=== PATIENT | female | born 1965 | race American Indian/Alaskan Native ===

== ENCOUNTER 2019-04-30 21:02 | Emergency (ER) | payer OTHER ==
--- NOTE | 2019-04-30 21:39 | Emergency Department Report ---
Blank Doc - Documentation Documentation: s/p trip to [place] where she developed nausea and vomiting c/o [place], Ear pain, and right eye pressure. Has right eye blurred vision and pain radiates down neck. This initial assessment/diagnostic orders/clinical plan/treatment(s) is/are subject to change based on patient's health status, clinical progression and re- assessment by fellow clinical providers in the ED. Further treatment and workup at subsequent clinical providers discretion. Patient/guardians urged not to el ope from the ED as their condition may be serious if not clinically assessed and managed. Initial orders include: Ears clear on exam
--- NOTE | 2019-04-30 22:37 | Cat Scan Report ---
CT OF THE HEAD WITHOUT CONTRAST INDICATION / CLINICAL INFORMATION: Headache. TECHNIQUE: All CT scans at this location are performed using CT dose reduction for ALARA by means of automated e xposure control. COMPARISON: None available. FINDINGS: The ventricular system is normal in size and configuration. No focal lesion or mass effect is seen. T here is no evidence of intracranial hemorrhage or major vessel occlusion. The calvarium is intact. Th e visualized paranasal sinuses and mastoid air cells are clear. IMPRESSION: Negative study. Signer Name: Hamran Monae MD Signed: 04/30/2019 10:33 PM Workstation Name: [id number]
[2019-04-30] MEDS ORDERED: NACL 0.9% 1000 ML 1,000 ML IV ONE (23:30)
[2019-04-30] MEDS ORDERED: ZOFRAN IV ONE (23:30)
[2019-04-30] MEDS ORDERED: TORADOL IV ONE (23:31)
--- NOTE | 2019-04-30 23:35 | Emergency Department Report ---
ED General Adult HPI - General Chief complaint: Headache Stated complaint: SEVERE HEADACHE, VOMITING Time Seen by Provider: 04/30/19 21:35 Source: patient Mode of arrival: Ambulatory Limitations: No Limitations - History of Present Illness Initial comments: This is a 54-year-old -[place] female who presents to the emergency room with nausea and vomiting, myalgia, and a headache for 3 days. Patient states she traveled via plane to [place] on Friday for work conference intensity ever since. Patient states the person sitting next to her on the plane was wearing a mask and cough the entire flight. She reports feeling sick Friday when she woke up vomiting and body aches. Patient reports symptoms worsen when she arrived home today. States she is unable to hold anything down and continue to ache. Onset/Timin -: days(s) Location: head, back Radiation: non-radiation Severity scale (0 -10): 5 Quality: aching Consistency: constant Improves with: none Worsens with: none Associated Symptoms: cough, fever/chills, headaches, nausea/vomiting. denies: confusion, chest pain, diaphoresis, malaise, rash, seizure, weakness Treatments Prior to Arrival: NSAID - Related Data Previous Rx's Medication Instructions Recorded Last Taken Type Butalb/Acetaminophen/Caffeine 1 cap PO Q6HR PRN #10 cap 05/01/19 Unknown Rx [Fioricet 50-300-40 mg CAP] Ondansetron [Zofran Odt] 4 mg PO Q8HR PRN #15 tab.rapdis 05/01/19 Unknown Rx Allergies Allergy/AdvReac Type Severity Reaction Status Date / Time No Known Allergies Allergy Unverified 04/30/19 21:44 ED Review of Systems ROS: Stated complaint: SEVERE HEADACHE, VOMITING Other details as noted in HPI Constitutional: chills. denies: fever ENT: congestion. denies: ear pain, throat pain Respiratory: cough. denies: shortness of breath, wheezing Cardiovascular: denies: chest pain, palpitations Gastrointestinal: nausea, vomiting. denies: abdominal pain, diarrhea Musculoskeletal: myalgia. denies: back pain, joint swelling, arthralgia Skin: denies: rash, lesions Neurological: headache. denies: weakness, paresthesias Psychiatric: denies: anxiety, depression ED Past Medical Hx - Past Medical History Previous Medical History?: No - Surgical History Past Surgical History?: Yes Additional Surgical History: Partial hysterectomy - Social History Smoking Status: Never Smoker Substance Use Type: None - Medications Home Medications: Home Medications Medication Instructions Recorded Confirmed Last Taken Type Butalb/Acetaminophen/Caffeine 1 cap PO Q6HR PRN #10 cap 05/01/19 Unknown Rx [Fioricet 50-300-40 mg CAP] Ondansetron [Zofran Odt] 4 mg PO Q8HR PRN #15 tab.rapdis 05/01/19 Unknown Rx ED Physical Exam - General Limitations: No Limitations General appearance: alert, in no apparent distress - ENT ENT exam: Present: mucous membranes moist, TM's normal bilaterally, normal external ear exam, other (turbinates congested with clear discharge.). Absent: normal orophraynx (erythematous posterior pharynx, uvula midline.) - Neck Neck exam: Present: normal inspection - Respiratory Respiratory exam: Present: normal lung sounds bilaterally. Absent: respiratory distress - Cardiovascular Cardiovascular Exam: Present: regular rate, normal rhythm. Absent: systolic murmur, diastolic murmur, rubs, gallop - GI/Abdominal GI/Abdominal exam: Present: soft, normal bowel sounds. Absent: distended, tenderness, guarding, rebound, rigid - Neurological Exam Neurological exam: Present: alert, oriented X3 - Psychiatric Psychiatric exam: Present: normal affect, normal mood - Skin Skin exam: Present: warm, dry, intact, normal color. Absent: rash ED Course Vital Signs 04/30/19 05/01/19 21:35 00:22 Temperature 98.8 F 98.9 F Pulse Rate 81 86 Respiratory 16 Rate Blood Pressure 164/106 159/96 O2 Sat by Pulse 100 98 Oximetry ED Medical Decision Making - Lab Data Result diagrams: 04/30/19 23:44 04/30/19 23:44 Lab Results 04/30/19 04/30/19 Range/Units 23:44 23:44 WBC 6.3 (4.5-11.0) K/mm3 RBC 4.53 (3.65-5.03) M/mm3 Hgb 13.2 (10.1-14.3) gm/dl Hct 39.8 (30.3-42.9) % MCV 88 (79-97) fl MCH 29 (28-32) pg MCHC 33 (30-34) % RDW 13.9 (13.2-15.2) % Plt Count 294 (140-440) K/mm3 Lymph % (Auto) 21.7 (13.4-35.0) % Lyon % (Auto) 3.8 (0.0-7.3) % Eos % (Auto) 0.1 (0.0-4.3) % Baso % (Auto) 0.4 (0.0-1.8) % Lymph # 1.4 (1.2-5.4) K/mm3 Lyon # 0.2 (0.0-0.8) K/mm3 Eos # 0.0 (0.0-0.4) K/mm3 Baso # 0.0 (0.0-0.1) K/mm3 Seg Neutrophils % 74.0 H (40.0-70.0) % Seg Neutrophils # 4.6 (1.8-7.7) K/mm3 Sodium 139 (137-145) mmol/L Potassium 4.3 (3.6-5.0) mmol/L Chloride 99.9 (98-107) mmol/L Carbon Dioxide 26 (22-30) mmol/L Anion Gap 17 mmol/L BUN 13 (7-17) mg/dL Creatinine 0.7 (0.7-1.2) mg/dL Estimated GFR > 60 ml/min BUN/Creatinine Ratio 19 % Glucose 128 H (65-100) mg/dL Calcium 9.8 (8.4-10.2) mg/dL Total Bilirubin 1.10 (0.1-1.2) mg/dL AST 19 (5-40) units/L ALT 18 (7-56) units/L Alkaline Phosphatase 64 (35-129) units/L Total Protein 7.7 (6.3-8.2) g/dL Albumin 4.7 (3.9-5) g/dL Albumin/Globulin Ratio 1.6 % - Radiology Data Radiology results: report reviewed CT OF THE HEAD WITHOUT CONTRAST INDICATION / CLINICAL INFORMATION: Headache. TECHNIQUE: All CT scans at this location are performed using CT dose reduction for ALARA by means of automated exposure control. COMPARISON: None available. FINDINGS: The ventricular system is normal in size and configuration. No focal lesion or mass effect is seen. There is no evidence of intracranial hemorrhage or major vessel occlusion. The calvarium is intact. The visualized paranasal sinuses and mastoid air cells are clear. IMPRESSION: Negative study. - Medical Decision Making Patient examined by me and stable. No distress noted. CT of head was obtained and dictated by the radiologist with no acute findings. Labs obtained. All labs unremarkable. Findings are susceptible of migraine and upper respiratory. Start zofran for nausea. Reviewed results with patient. Discharged home stable. Instructed to take [id number] NSAIDs for pain. Follow up with Primary Care Provider in 2-3 days. Critical care attestation.: If time is entered above; I have spent that time in minutes in the direct care of this critically ill patient, excluding procedure time. ED Disposition Clinical Impression: Nausea and vomiting in adult Upper respiratory infection Qualifiers: URI type: acute nasopharyngitis (common cold) Qualified Code(s): J00 - Acute nasopharyngitis [common cold] Migraine Qualifiers: Migraine type: without aura Status migrainosus presence: with status migrai nosus Intractability: not intractable Qualified Code(s): G43.001 - Migraine without aura, not intractable, with status migrainosus Disposition: TO HOME OR SELFCARE Is pt being admited?: No Condition: Stable Instructions: Upper Respiratory Infection (ED), Cold Symptoms (ED), Migraine Headache (ED) Prescriptions: Butalb/Acetaminophen/Caffeine [Fioricet 50-300-40 mg CAP] 1 cap PO Q6HR PRN #10 cap PRN Reason: Migraine Headache Ondansetron [Zofran Odt] 4 mg PO Q8HR PRN #15 tab.rapdis PRN Reason: Nausea And Vomiting Referrals: [facility] [Outside] - 3-5 Days [facility] [Outside] - 3-5 Days [facility] [Outside] - 3-5 Days Forms: Work/School Release Form(ED) Time of Disposition: 01:50
[2019-05-01 00:27] LABS: Basophils % (Auto) 0.4 % (0.0-1.8); Eosinophils % (Auto) 0.1 % (0.0-4.3); Hematocrit 39.8 % (30.3-42.9); Hemoglobin 13.2 gm/dl (10.1-14.3); Lymphocytes # (Auto) 1.4 K/mm3 (1.2-5.4); Lymphocytes % (Auto) 21.7 % (13.4-35.0); Mean Corpuscular HGB Conc 33 % (30-34); Mean Corpuscular Volume 88 fl (79-97); Monocytes # (Auto) 0.2 K/mm3 (0.0-0.8); Monocytes % (Auto) 3.8 % (0.0-7.3); Platelet Count 294 K/mm3 (140-440); Red Blood Count 4.53 M/mm3 (3.65-5.03); Red Cell Distribution Width 13.9 % (13.2-15.2)
[2019-05-01 00:29] VITALS: BP 159/96
[2019-05-01 00:47] LABS: Alanine Aminotransferase 18 units/L (7-56); Albumin 4.7 g/dL (3.9-5); BUN/Creatinine Ratio 19; Blood Urea Nitrogen 13 mg/dL (7-17); Calcium 9.8 mg/dL (8.4-10.2); Hemolysis Index 11
== END 2019-05-01 02:18 | disposition home or self-care (01) ==
LOC: ED 21:02
DX: G43.909 Migraine, unspecified, not intractable, without status migrainosus (principal); J06.9 Acute upper respiratory infection, unspecified; R11.2 Nausea with vomiting, unspecified; M79.10 Myalgia, unspecified site; Z90.711 Acquired absence of uterus with remaining cervical stump
CPT/HCPCS: 36415; 70450; 80053; 85025; 96361; 96374; 96375; 99284; J1885; J2405; J7030